=== PATIENT | female | born 1960 | race Caucasian/White ===

== ENCOUNTER 2016-08-15 00:08 | Emergency (ER) | payer MEDICAID ==
[~2016-08-15 00:08] MED LIST: AMO125L8
[2016-08-15 02:45] VITALS: BP 173/109
== END 2016-08-15 02:45 | disposition home or self-care (01) ==
LOC: ED 00:08
DX: S00.31XA Abrasion of nose, initial encounter (principal); W20.8XXA Other cause of strike by thrown, projected or falling object, initial encounter; Y93.89 Activity, other specified; Y92.89 Other specified places as the place of occurrence of the external cause; Y99.8 Other external cause status